=== PATIENT | female | born 1935 | race Caucasian/White ===

== ENCOUNTER → 2016-06-28 | Outpatient (CLI) | payer MEDICARE, BC ==
[~2016-06-28] MED LIST: ALDACTONE DPS25 MG PO; ALDACTONE25 MG PO; ASA325 MG PO; CALCITRIOL0.25 MCG PO; COUMADIN5 MG PO; COUMADIN7.5 MG PO; DELTASONE DPS10 MG PO; DELTASONE DPS5 MG PO; DULCOLAX-DPS10 MG PR; DUONEB DPS3 ML IH; FISH OIL 1,0001 EACH PO; ICAPS TABLET1 EACH PO; LASIX DPS40 MG PO; LASIX DPS80 MG PO; LEVAQUIN DPS250 MG PO; LEVAQUIN DPS500 MG PO; MIRALAX PACKET17 GM PO; NORVASC5 MG PO; OMEGA-3 DPS1000 MG PO; PEPCID DPS20 MG PO; PRAVACHOL40 MG PO; PRESERVISION A1 EACH PO; PRILOSEC DPS20 MG PO; PROVENTIL HFA6.7 GM IH; PROVENTIL2.5 MG/3 M PO; ROCALTROL DP0.25 MCG PO; SPIRIVA18 MCG IH; SYMBICORT160 MCG/6 IH; THERA1 EACH PO; THERAPEUTIC MUL1 TAB PO; TYLENOL DPS325 MG PO; [UNRECOGNIZED DRUG - OTHER] PO
== END | disposition home or self-care (01) ==
LOC: RAD.S 10:20
DX: I82.622 Acute embolism and thrombosis of deep veins of left upper extremity (principal)

== ENCOUNTER 2016-07-04 06:28 | Inpatient (IN) | payer MEDICARE, BC ==
[~2016-07-04] VITALS: Ht 162.6 cm; Wt 114.4 kg
--- NOTE | ~2016-07-04 | ECH ---
Transthoracic Echocardiography Report (TTE) Demographics Patient Name ELIANA HILARIO Date of Study 07/06/2016 Patient Number [id number] Visit Number [id number] Date of 1935 Room Number 427 Accession Number [id number] Gender Female Age 81 year(s) Referring Aaron Lion MD Bi Technical Lead Fariba Richardson Physician RDCS Physician Interpreting King Julián Ge MD Welfare Interviewer Physician Supervising Ordering Physician Aaron Lion MD, MD/MLP Nurse Stress Used Car Make Ready Worker Conclusions Summary Technically adequate exam. The estimated left ventricular ejection fraction is 60%. Diastolic assessment reveals Grade I diastolic dysfunction. Mild tricuspid regurgitation by color Doppler. There is mild pulmonary hypertension. The pulmonary pressure (RVSP) is 40 mmHg. Procedure Type of Study TTE procedure:Echo Complete SF. Procedure Date Date: 07/06/2016 Start: 10:23 AM Technical Quality: Adequate visualization Indications:Shortness of breath, Coronary artery disease, Congestive heart failure and Hypertension. Appropriate Use Criteria: 9 Height: 64 inches Weight: 244 pounds BSA: 2.13 m Rhythm: Within normal limits HR: 82 bpm BP: 126/59 mmHg M-Mode/2D Measurements LV Diastolic Dimension: 5.29 cm LV Systolic Dimension: 2.96 cm LV Septum Diastolic: 0.83 cm LV PW Diastolic: 0.82 cm AO Root Dimension: 3.08 cm Cardiac Output: 6.66 l/min LA Dimension: 3.47 cm Cardiac Index: 3.13 l/min*m RV Diastolic Dimension: 3.54 cm LA volume index: 25 ml/m LVOT: 1.95 cm LVOT VTI: 27.22 cm RV Base: 2.6 cm LV Stroke volume: 81.25 ml RV Mid: 1.8 cm LV Stroke volume index: 38.15 ml/m TAPSE: 2.8 cm TDI-S': 15 cm/s Doppler Measurements AV Peak Velocity: 1.9 m/s MV Peak E-Wave: 0.92 m/s AV Peak Gradient: 14.44 mmHg MV Peak A-Wave: 0.99 m/s AV Mean Gradient: 8.72 mmHg MV E/A Ratio: 0.93 LVOT Peak Velocity: 1.22 m/s MV P1/2t: 66.1 msec AV Area (Continuity):2.04 cm MV Deceleration Time: 219.6 msec TR Velocity:2.95 m/s MV Area (PHT): 3.33 cm TR Gradient:34.81 mmHg PV Peak Velocity: 0.93 m/s Estimated RAP:5 mmHg PV Peak Gradient: 3.45 mmHg Estimated RVSP: 40 mmHg Estimated PASP: 39.81 mmHg E' Septal Velocity: 0.13 m/s A' Septal Velocity: 0.1 m/s E' Lateral Velocity: 0.06 m/s A' Lateral Velocity: 0.1 m/s RA Area: 15.69 cm Findings Left Ventricle Normal left ventricle size and function. Diastolic assessment reveals Grade I diastolic dysfunction. Right Ventricle Normal right ventricle structure and function. Left Atrium Normal left atrial size. Right Atrium Normal right atrial size. Mitral Valve Normal mitral valve structure and function. Trivial mitral regurgitation by color Doppler. Aortic Valve The aortic valve is mildly sclerotic. Tricuspid Valve Normal tricuspid valve structure and function. Mild tricuspid regurgitation by color Doppler. There is mild pulmonary hypertension. The pulmonary pressure (RVSP) is 40 mmHg. Pulmonic Valve The pulmonic valve is not well visualized. Pericardial Effusion No evidence of pericardial effusion. Miscellaneous Visualized portions of the aortic root and ascending aorta appear normal in size. Pleural Effusion No evidence of pleural effusion. Signature
--- NOTE | ~2016-07-04 | CST ---
Cardiac Perfusion Imaging Demographics Patient Name YANELIS Nixon Gender Female Patient Number [id number] Race Visit Number [id number] Ethnicity Corporate ID Room Number 427 Accession Number [id number] Height 64 inches Date of 1935 Weight 244 pounds Age 81 year(s) BSA 2.13 m Referring Physician King Julián Ge MD BMI 41.88 kg/m Renetta Leonardo MD Interpreting Physician [facility] Date of study 07/08/2016 Princess Han Supervising MD/MLP Princess SALGADO Technologist Jed Han Ordering Physician King Julián Ge MD Stress Jeannine Alina equipment technician Stress ECG Reading [facility] Nurse Cheryl Covington Physician Princess Covington The procedure was explained in detail to the patient. Risks, complications and alternative treatments were reviewed. Written consent was obtained. Medications Reviewed with Patient prior to Procedure. Procedure Procedure Type: Nuclear Stress Test:Pharmacological, Cardiac Study Procedure Start time: 07/08/2016 07:30 Indications: Dyspnea, Chronic Diastolic Heart Failure, Tobacco use-prior, Hyperlipidemia, Hypertension and Family history of coronary artery disease. Risk Factors The patient risk factors include:obesity, former tobacco use, treated and uncontrolled hypercholesterolemia, treated and uncontrolled hypertension, family history of premature CAD, chronic lung disease, dyslipidemia and prior heart failure . Conclusions Summary Perfusion Images: The overall quality of the study is good. Left ventricular cavity is noted to be normal on the stress and rest studies. There is no evidence of abnormal lung activity. The right ventricle is not visualized and cannot be assessed. Stress SPECT images demonstrate homogenous tracer distribution throughout the myocardium. Rest SPECT images demonstrate homogenous tracer distribution throughout the myocardium. Gated SPECT imaging reveals normal myocardial thickening and wall motion. The left ventricular ejection fraction was calculated to be 69%. Impression 1. No ECG evidence of ischemia with Lexiscan infusion. 2. Myocardial perfusion imaging is normal. 3. Overall left ventricular systolic function was normal without regional wall motion abnormalities. 4. There are no previous studies for comparison. Stress Protocols Resting ECG Normal sinus rhythm. Within normal limits. Resting HR:69 bpm Resting BP:102/60 mmHg Stress Protocol:Pharmacologic Predicted HR: 138 bpm Test duration: 06:00 min Reason for termination:Infusion complete ECG Findings Normal sinus rhythm. No ECG changes suggestive of ischemia. Arrhythmias No rhythm abnormality. Symptoms Shortness of breath. Complications Procedure complication: None. Stress Interpretation Negative pharmacologic stress ECG for ischemia. Imaging Results Summed scores - Summed stress score: 0 - Summed rest score: 0 - Summed difference score: 0 Stress ejection Ejection fraction:68 % EDV :85 ml ESV :27 ml Stroke volume :58 ml LV mass :101 gr Imaging Protocols Rest Stress Isotope:Tc99m Myoview IV Isotope: Tc99m Myoview IV Isotope dose:10.5 mCi Isotope dose:30.6 mCi Date:07/08/2016 06:30 Date:07/08/2016 07:30 Technique: SPECT Technique: Gated Supine SPECT Supine IV remains in place after procedure. Scan Time:30 minutes post injection Scan Time:45-60 minutes post injection Procedure Medications - Regadenoson (Lexiscan) 0.4 mg IV over 10-15 sec. I.V. 0.4 mg. Medications administered per verbal order and read back to physician prior to administration. Medical History Admission Data Admission date: 07/06/2016 Admission Time: 14:45 Hospital Status: Inpatient. Signatures
[~2016-07-04 06:28] MED LIST changes: -ALDACTONE25 MG PO; -DELTASONE DPS10 MG PO; -DULCOLAX-DPS10 MG PR; -DUONEB DPS3 ML IH; -LASIX DPS80 MG PO; -LEVAQUIN DPS250 MG PO; -MIRALAX PACKET17 GM PO; -OMEGA-3 DPS1000 MG PO; -PEPCID DPS20 MG PO; -PRESERVISION A1 EACH PO; -PROVENTIL2.5 MG/3 M PO; -ROCALTROL DP0.25 MCG PO; -THERA1 EACH PO
--- NOTE | 2016-07-04 19:08 | ER ---
ADMIT: 07/04/2016 RM/LOC: 427 [facility] MR#: [id number] [address] [address] ELIANA HILARIO [address] [place] [address] Emergency Room Report SEX: F AGE: 81 : 1935 DATE: 07/04/2016 HISTORY OF PRESENT ILLNESS: The patient is an 81-year-old female with a past medical history of CHF, hypertension, COPD, and asthma, came to the ER with chief complaint of increased shortness of breath today. The patient denies any fever at home. The patient denies any chest pain too. PHYSICAL EXAMINATION: VITAL SIGNS: The patient had moderate respiratory distress, O2 saturation was in low 90s in room air, the patient was slightly tachypneic, the patient was not febrile, the patient received breathing treatment. LUNGS: Bilateral wheezing without any crackles. HEART: Normal S1-S2 without any murmurs. ABDOMEN: Soft. EXTREMITIES: No tenderness in lower extremities. IMAGING DATA: Chest x-ray did not show any infiltration. EKG did not show any ST or T changes or Q-waves or arrhythmia. Cardiac enzymes are negative. D-dimer is negative. The patient received another dose of DuoNeb nebulizer, the patient received Solu-Medrol IV in the ER. The patient was signed out to the next shift to follow up on her condition and accordingly for shortness of breath, COPD exacerbation/asthma exacerbation. BNP was also noncontributory. Drew Miller MD/ ashwini JOB #: [id number] CC: Miguelito Jackson MD, Attending Physician Miguelito Jackson MD, Family Physician
[2016-07-08] MEDS ORDERED: ROCALTROL DP0.25 MCG PO (20:29)
[2016-07-08] MEDS ORDERED: NORVASC5 MG PO (20:30)
[2016-07-08] MEDS ORDERED: MIRALAX PACKET17 GM PO (20:30)
[2016-07-08] MEDS ORDERED: PRAVACHOL40 MG PO (20:30)
[2016-07-08] MEDS ORDERED: LEVAQUIN DPS250 MG PO (20:30)
[2016-07-08] MEDS ORDERED: PEPCID DPS20 MG PO (20:30)
[2016-07-08] MEDS ORDERED: PROVENTIL HFA6.7 GM IH (20:31)
[2016-07-08] MEDS ORDERED: ALDACTONE25 MG PO (20:31)
[2016-07-08] MEDS ORDERED: SPIRIVA18 MCG IH (20:31)
[2016-07-08] MEDS ORDERED: SYMBICORT160 MCG/6 IH (20:31)
[2016-07-08] MEDS ORDERED: PRESERVISION A1 EACH PO (20:32)
[2016-07-08] MEDS ORDERED: OMEGA-3 DPS1000 MG PO (20:32)
[2016-07-08] MEDS ORDERED: ASA325 MG PO (20:32)
[2016-07-08] MEDS ORDERED: LASIX DPS40 MG PO (20:32)
[2016-07-08] MEDS ORDERED: THERA1 EACH PO (20:32)
[2016-07-08] MEDS ORDERED: COUMADIN5 MG PO (20:33)
[2016-07-08] MEDS ORDERED: LASIX DPS80 MG PO (20:33)
[2016-07-08] MEDS ORDERED: DUONEB DPS3 ML IH (20:34)
[2016-07-08] MEDS ORDERED: PROVENTIL2.5 MG/3 M PO (20:34)
[2016-07-08] MEDS ORDERED: DULCOLAX-DPS10 MG PR (20:34)
[2016-07-08] MEDS ORDERED: DELTASONE DPS10 MG PO (20:36)
--- NOTE | 2016-07-15 10:40 | HP ---
ADMIT: 07/04/2016 RM/LOC: 427 [facility] MR#: [id number] 26[address] [facility] [address] [place], [place] [address] VIOLETA HILARIOLEY Tiffani [address] [place] [address] History and Physical SEX: F AGE: 81 : 1935 DATE OF SERVICE: CHIEF COMPLAINT: Shortness of breath. HISTORY OF PRESENT ILLNESS: The patient is a pleasant 81-year-old female with recently saw myself in clinic here with three days of fever, shortness of breath, and URI symptoms. Denies any cardiac symptoms. No chest pain. No left arm pain. No jaw pain. Denies any other real concerns or complaints at this time. PAST MEDICAL HISTORY: COPD, asthma, coronary artery disease, CKD, diastolic heart failure, hyperlipidemia, obesity, sleep apnea, osteoporosis, spinal stenosis, breast cancer, and per records of aortic stenosis. PAST SURGICAL HISTORY: Hysterectomy; breast lumpectomy; foot, sinus, hand, elbow, and shoulder surgery; neck fusion. ALLERGIES: PENICILLIN, CEPHALOSPORINS, SULFA, THEOPHYLLINE, ISOSORBIDE- OXYCODONE, CELEBREX, AND LEXAPRO. MEDICATIONS: 1. Calcitriol 0.25 mcg daily. 2. Pravastatin 40 at bedtime. 3. MiraLAX as needed. 4. Omeprazole 20 b.i.d. 5. Amlodipine 5 daily. 6. Spironolactone 25 b.i.d. 7. Symbicort daily. 8. Spiriva daily. 9. Ventolin q.4 hours p.r.n. 10.Fish oil 2000 b.i.d. 11.PreserVision b.i.d. 12.Multivitamin. 13.Aspirin 325 daily. 14.Lasix 40 every other day. 15.Lasix 80 every other day. 16.Warfarin 5 on Monday, Monday, Monday, and Monday and 7.5 on Monday, , and Monday. FAMILY HISTORY: Coronary artery disease, hypertension, diabetes, uterine cancer, lymphoma, bladder cancer, and colon cancer. REVIEW OF SYSTEMS: Positive for fevers and shortness of breath. She denies chills, chest pain, headaches, nausea, vomiting, numbness, tingling, vision changes, or melena. SOCIAL HISTORY: Prior tobacco abuse. PHYSICAL EXAMINATION: VITAL SIGNS: Temp 98.7, pulse 95, blood ADMIT: 07/04/2016 RM/LOC: 427 [facility] MR#: [id number] [address] [address] [place] [address] History and Physical SEX: F AGE: 81 : 1935 pressure 140/70, and O2 is 94%. GENERAL: She is alert, awake, oriented, in no acute distress. HEENT: Normocephalic, atraumatic. Pupils are round and reactive to light. HEART: Regular rate and rhythm. LUNGS: Diminished throughout. ABDOMEN: Soft, nontender, and nondistended. EXTREMITIES: No clubbing, cyanosis, or edema. NEURO: Cranial nerves II through XII are grossly intact. No focal motor or sensory deficits. LABORATORY DATA: Cardiac enzymes are negative. Sodium 141, potassium 3, chloride 105, CO2 of 26, BUN 21, glucose 108, creatinine is 1.3, and calcium is 8.3. Bilirubin is 0.3, total protein 7.5, albumin is 2.7, alkaline phosphatase 73, AST 15, and ALT 16. Chest x-ray shows emphysema. INR is 1.83. White count 13.8, hemoglobin 11.4, and platelets 242. ASSESSMENT: 1. Chronic obstructive pulmonary disease exacerbation. 2. Diastolic heart failure. 3. Chronic kidney disease. 4. Obesity. 5. Sleep apnea. 6. Osteoporosis. PLAN: Plan will be for IV antibiotics, steroids, and nebs. Anticipate discharge relatively in the near future. Miguelito Jackson MD/ ashwini JOB #: [id number] CC: Miguelito Jackson MD, Attending Physician Miguelito Jackson MD, Family Physician
--- NOTE | 2016-07-15 15:59 | CO ---
ADMIT: 07/04/2016 RM/LOC: 427 [facility] MR#: [id number] [address] [address] ELIANA HILARIO [address] [place] [address] Consultation SEX: F AGE: 81 : 1935 DATE OF CONSULTATION: 07/06/2016 ATTENDING PHYSICIAN: Miguelito Jackson MD CONSULTING PHYSICIAN: Beatriz Peoples MD CHIEF COMPLAINT: Acute kidney injury and chronic kidney disease stage 3. HISTORY OF PRESENT ILLNESS: The patient is an 81-year-old female, who is well known to me. She has a history of CKD stage 3 with a baseline creatinine of around 1.4. She was admitted to the hospital 2 days ago with a chief complaint of shortness of breath. She has a history of COPD and notes that towards the end of last week, she had a fever. Then she went on to have a cough. She presented for an evaluation and was admitted with COPD exacerbation. She is being treated with antibiotics as well as appropriate respiratory therapy. Her admission creatinine was at her baseline of 1.3. It was elevated to 1.6 yesterday and 2.1 today. This in the setting of her blood pressure dropping to the low 110s to 120s and diuretic use including Lasix and spironolactone. She has continued to have poor appetite throughout this course of illness over the last one week or so. She denies any urinary complaints. Denies any lower extremity edema. She denies any orthopnea or PND. Denies any abdominal complaints. REVIEW OF SYSTEMS: A complete review of systems is negative in detail except as mentioned in history of present illness above. PAST MEDICAL HISTORY: 1. Chronic kidney disease stage 3 with a baseline creatinine of 1.4. 2. Hypertension. 3. Renal osteodystrophy. 4. COPD. 5. Asthma. 6. Coronary artery disease. 7. Diastolic heart failure. 8. Obesity. 9. Obstructive sleep apnea, on CPAP. 10.Osteoporosis. 11.Spinal stenosis. 12.Breast cancer status post lumpectomy. 13.Hysterectomy. ALLERGIES: SULFA, PENICILLIN, VIOXX, CELEBREX, PERCOCET, KEFLEX. MEDICATIONS: Reviewed in the chart. FAMILY HISTORY: Diabetes and heart disease run in her family. SOCIAL HISTORY: She is a former smoker. No ongoing tobacco, alcohol, or recreational drug use. ADMIT: 07/04/2016 RM/LOC: 427 [facility] MR#: [id number] [address] [address] ELIANA HILARIO [facility] [place] [address] Consultation SEX: F AGE: 81 : 1935 PHYSICAL EXAMINATION: VITAL SIGNS: Temperature 97.2 Fahrenheit, pulse 80, blood pressure 126/59, and saturating 100% on 2 L nasal cannula. Urine output over the last 24 hours has been 550 mL. GENERAL: She is comfortable in her recliner. HEENT: Head is nontraumatic and normocephalic. Pale conjunctivae. Dry mucosa. NECK: Supple without any JVD. CHEST: Clear to auscultation. Decreased breath sounds at the bases. CVS: Regular rhythm. S1, S2 heard. No rubs, murmurs, or gallops. ABDOMEN: Soft, obese. EXTREMITIES: No edema. SKIN: No rash or nodules. NEUROLOGIC: Alert, awake, oriented x3 is able to move all her extremities. PSYCHIATRIC: Affect and memory within normal limits. MUSCULOSKELETAL: Major joints within normal limits. Range of motion within normal limits. LABORATORY DATA: Reviewed. BMP with sodium 135, potassium 4.2, creatinine 2.1. It was 1.6 yesterday. Her CO2 was 25. Her hemoglobin is 9.8. Chest x-ray from this morning showed cardiomegaly and emphysema. No obvious infiltrate in her lungs. ASSESSMENT AND PLAN: 1. Acute kidney injury on chronic kidney disease stage 3 - baseline creatinine is around 1.4. Acute kidney injury is likely prerenal in etiology in the setting of decreased oral intake and diuretic use. I will check urine studies to evaluate this further. I agree with holding her diuretics for the time being and gentle IV fluids. I recommend avoiding nephrotoxins such as NSAIDs, IV contrast, and Fleets enemas. Monitor kidney function closely moving forward. 2. Hypertension - blood pressure is currently acceptable. She appears euvolemic on exam. 3. Renal osteodystrophy - continue calcitriol 0.25 mcg a day. Thank you for this consultation and allowing me the opportunity to participate in this patient's care. Please do not hesitate to contact with any questions. Beatriz Peoples MD/ ashwini JOB #: [id number] CC: Miguelito Jackson MD, Attending Physician Miguelito Jackson MD, Family Physician
--- NOTE | 2016-08-10 14:02 | CO ---
ADMIT: 07/06/2016 RM/LOC: 427 [facility] MR#: [id number] [address] [address] MARISA HILARIO [address] [place] [address] Consultation SEX: F AGE: 81 : 1935 DATE OF CONSULTATION: 07/07/2016 ATTENDING PHYSICIAN: Miguelito Jackson MD CONSULTING PHYSICIAN: Julián Espinoza MD REASON FOR CONSULT: Diastolic heart failure. HISTORY OF PRESENT ILLNESS: Marisa is a pleasant 81-year-old female, who was admitted on 07/04/2016 with increased shortness of breath and COPD exacerbation. She is known to our office as Dr. Oscar iglesias for her cardiology needs. She states that she was admitted for increasing shortness of breath over her baseline chronic level of shortness of breath. She was treated with antibiotics and steroids for COPD exacerbation; however, she continues to feel that she has an increased level of shortness of breath. She has known diastolic heart failure and she as well as her family were concerned that there could be some cardiac etiology to these symptoms. She denies having any symptoms of chest pain, palpitations or syncope. CARDIAC HISTORY AND RISK FACTORS: Her cardiac history is significant for heart failure with preserved ejection fraction. She has had an ejection fraction of 50% most recently in 2013. She does not have any known coronary artery disease. In 2006 she underwent heart catheterization with normal results. In 2011, she underwent stress test with normal results. In 2014, she did have a left brachial DVT for which she has continued on Coumadin therapy since. Her heart failure has been managed with oral Lasix and spironolactone. She was also on Norvasc 5 mg empirically. Marisa also states that in the past she has suffered 2 mini strokes but is unable to provide details as to when they occurred or what the precipitating factors were. Her cardiac risk factors include significant history of tobacco abuse, smoking one pack per day for 35 years. She states that she quit about 20 years ago. She admits to having high cholesterol but denies any history of hypertension or diabetes. She does state that her mother had congestive heart failure. PAST MEDICAL HISTORY: This is obtained from available records and includes history of asthma, COPD, chronic kidney disease, depression, left breast cancer for which she underwent surgery and radiation therapy in 2007, osteoarthritis, acid reflux, hiatal hernia, macular degeneration, monoclonal gammopathy, obesity, obstructive sleep apnea, spinal stenosis. PAST SURGERY HISTORY: Prior surgeries include left breast lumpectomy, left shoulder surgery, hysterectomy, cystocele repair, foot surgery, trigger thumb surgery, and sinus surgery. ALLERGIES: SHE IS ALLERGIC TO SULFA, PENICILLIN, VIOXX, CELEBREX, PERCOCET, KEFLEX, THEOPHYLLINE, ISOSORBIDE, OXYCODONE, INSULIN, AND THEOPHYLLINE CITALOPRAM. ADMIT: 07/06/2016 RM/LOC: 427 [facility] MR#: [id number] [address] [address] [place] [address] Consultation SEX: F AGE: 81 : 1935 CURRENT MEDICATIONS: Include: 1. Aspirin 325 mg daily. 2. Coumadin as directed. 3. Levaquin 250 mg daily. 4. Norvasc 5 mg daily. 5. [place]-3. 6. Pepcid. 7. Rocaltrol. 8. Multivitamin. 9. Dulera. 10.DuoNeb. 11.Spiriva. 12.Solu-Medrol. Her additional home cardiac medications included: 1. Pravastatin 40 mg daily. 2. Spironolactone 25 mg twice daily. 3. Furosemide 40 mg every other day, alternating with 80 mg. FAMILY HISTORY: Her family history is significant for congestive heart failure in her mother. There is a history of heart disease in her brother and diabetes in her daughter. Her mother suffered from stroke. There is a family history of cancer in her brother and daughter. SOCIAL HISTORY: Marisa states she drinks at least 2 cups of caffeinated beverages daily. She denies use of alcohol or other nonprescription drugs. She states that she does go to cardiac rehab 2 days per week. She is retired. She used to work in Physical Therapy at the hospital. She is and lives by herself in her own home. REVIEW OF SYSTEMS: GENERAL: Denies fatigue, fever, chills, sweats, rash, or weight loss. EYES: Denies double vision, blurred vision, cataracts, or glaucoma. ENT: Denies hearing loss or problems with nose, mouth or throat. PULMONARY: RESPIRATORY: Positive for shortness of breath, asthma, COPD, and negative for others. GASTROINTESTINAL: Denies heartburn or difficulty swallowing. No change in bowel habits. Denies dark or bloody stools. No history of ulcers, hiatal hernia, or gallbladder or liver disease. GENITOURINARY: Denies dysuria, hematuria, nocturia, urinary tract infection, or kidney stones. Denies history of renal insufficiency or failure. MUSCULOSKELETAL: Denies history of arthritis or gout. Positive for chronic back and leg pain.. ENDOCRINE: Denies history of thyroid dysfunction or diabetes. HEMATOLOGIC: Positive for history of breast cancer in 2007. Denies history of anemia or easy bruising. NEUROLOGIC: Denies chronic headaches, dizziness, syncope, stroke, seizures or numbness or tingling. ADMIT: 07/06/2016 RM/LOC: 427 [facility] MR#: [id number] 2620 [facility] [address] [place] [id number] MARISA HILARIO [facility] [address] [place], [place] [address] Consultation SEX: F AGE: 81 : 1935 PSYCHIATRIC: Denies history of mental illness. PSYCHIATRIC: Positive for depression. PHYSICAL EXAMINATION: VITAL SIGNS: Blood pressure 134/56, pulse 71, respiratory rate 20, temp 96.9, O2 saturation 99%. GENERAL: Alert and oriented x3. SKIN: Payne, warm and dry. EYES: Sclerae clear. No xanthelasmas. ENT: Oral mucosa is pink and moist. No jugular venous distention or carotid bruits. CHEST: Decreased breath sounds. HEART: Regular rate and rhythm. Normal S1, S2. No murmurs, rubs or gallops. ABDOMEN: Soft and nontender. MUSCULOSKELETAL: Gait is normal. EXTREMITIES: Peripheral pulses palpable. No clubbing, cyanosis or edema. PSYCHIATRIC: Alert and oriented. Mood and affect are appropriate. DIAGNOSTIC STUDIES: WBC 8.8, hemoglobin 9.9, platelets 245. Creatinine 1.6 today, magnesium 2.9. Her cardiac enzymes and BNP were negative. Repeat echocardiogram revealed an ejection fraction of 60%, grade 1 diastolic dysfunction, mild tricuspid regurgitation, and mild pulmonary hypertension. Chest x-ray yesterday revealed cardiomegaly. CT of the chest noncontrast performed this morning reveals significant coronary calcifications. ASSESSMENT: 1. Shortness of breath. 2. Coronary calcifications. 3. Chronic obstructive pulmonary disease. 4. Chronic kidney disease. PLAN: Her BNP result is within normal limits, which makes it less likely that her increased shortness of breath is due to congestive heart failure. She currently has no edema or response to diuretics given in the preceding days. Her CT chest performed this morning shows significant coronary calcification. We will proceed with checking a stress test to make sure that she is not having symptoms from ischemia. If her stress test is normal, we could potentially evaluate for pulmonary emboli. She has been on anticoagulation with Coumadin, however since 2014. We will proceed with stress test in the morning and continue to monitor and review those results. SENAIT Parker Student / Julián Espinoza MD / modl JOB #: [id number] CC: Miguelito Jackson MD, Attending Physician Miguelito Jackson MD, Family Physician
--- NOTE | 2016-08-25 20:17 | DS ---
ADMIT: 07/06/2016 RM/LOC: [address] [facility] MR#: [id number] [place], [place] [id number] ELIANA HILARIO [address] [place] [address] General Discharge Summary SEX: F AGE: 81 : 1935 ADMISSION DATE: 07/06/2016 DISCHARGE DATE: 07/08/2016 DISCHARGE DIAGNOSES: Include: 1. Upper respiratory infection. 2. Chronic obstructive pulmonary disease exacerbation. 3. Heart failure with preserved ejection fraction. 4. Acute kidney injury on chronic kidney disease. 5. Obesity. 6. Sleep apnea. 7. Osteoporosis. 8. Multiple medical problems. 9. Mild pulmonary hypertension. CONSULTANTS: Nephrology and Cardiology. HISTORY OF PRESENT ILLNESS: Please refer to admission H and P dated 07/04/2016. HOSPITAL COURSE: The patient was admitted, started on IV antibiotics, IV steroids and nebulizers. Home medicines were continued other than her Lasix. Cardiac enzymes were trended. She was put on Levaquin. Steroids were weaned. Nephrology was consulted. She was given IV fluid resuscitation and I requested Cardiology evaluate the patient. Steroids continued to be weaned. Cardiology evaluated the patient for nuclear stress test. She had a normal myocardial perfusion, but still short of breath, thus CTA was performed, which was negative for PE. The patient was discharged with close followup on 07/08/2016. MEDICATIONS: Please see discharge MAR. PROCEDURES: Nuclear stress test. LABS: On 07/07/2016; white count 8.8, hemoglobin 9.9, platelets were 245. On 07/08/2016; creatinine 1.3. Urine culture showed no growth. Respiratory viral panel, no clear probe detected. Radiology on 07/07/2016 chest without showed discoid atelectasis in the right middle lobe, coronary artery disease. ADMIT: 07/06/2016 RM/LOC: [address] [facility] MR#: [id number] [facility] [address] [place], [place] [address] ELIANA HILARIO [address] [place] [address] General Discharge Summary SEX: F AGE: 81 : 1935 CTA on 07/08/2016 showed atelectasis in the right middle lobe and left lower lobe. No pulmonary emboli. Chest x-ray showed emphysema, congestive heart failure. On 07/06, chest x-ray shows congestive failure and probable COPD. Echo on 07/06/2016 shows an EF of 60%. Diastolic grade 1 dysfunction, mild tricuspid regurg, mild pulmonary hypertension. On 07/08/2016, stress test shows no ECG evidence of ischemia. Myocardial perfusion imaging is normal. Left ventricular systolic function normal without regional wall motion abnormalities. No previous studies. Follow up with Cardiology in one month and Nephrology as scheduled. CBC, CMP, and INR on 07/11, chest x-ray. Follow up with PCP in 3-4 days. Miguelito Jackson MD/ ashwini JOB #: [id number] CC: Miguelito Jackson MD, Attending Physician Miguelito Jackson MD, Family Physician . [facility]
== END 2016-07-08 15:00 | disposition home health service (06) | DRG 191 ==
LOC: ER 06:28 → 4PCU 09:45
PROVIDERS: ADMIT Family Medicine
DX: J44.1 Chronic obstructive pulmonary disease with (acute) exacerbation (principal); N17.9 Acute kidney failure, unspecified; I27.2 Other secondary pulmonary hypertension; I50.32 Chronic diastolic (congestive) heart failure; N25.0 Renal osteodystrophy; I13.0 Hypertensive heart and chronic kidney disease with heart failure and stage 1 through stage 4 chronic kidney disease, or unspecified chronic kidney disease; Z68.41 Body mass index [BMI] 40.0-44.9, adult; J06.9 Acute upper respiratory infection, unspecified; I35.0 Nonrheumatic aortic (valve) stenosis; I25.10 Atherosclerotic heart disease of native coronary artery without angina pectoris; E78.5 Hyperlipidemia, unspecified; E66.9 Obesity, unspecified; N18.3 Chronic kidney disease, stage 3 (moderate); G47.33 Obstructive sleep apnea (adult) (pediatric); M81.0 Age-related osteoporosis without current pathological fracture; M48.00 Spinal stenosis, site unspecified; Z85.3 Personal history of malignant neoplasm of breast; Z79.82 Long term (current) use of aspirin; Z79.01 Long term (current) use of anticoagulants; Z82.49 Family history of ischemic heart disease and other diseases of the circulatory system; Z87.891 Personal history of nicotine dependence; Z86.718 Personal history of other venous thrombosis and embolism; Z86.73 Personal history of transient ischemic attack (TIA), and cerebral infarction without residual deficits; Z66 Do not resuscitate

== ENCOUNTER → 2016-07-27 | Outpatient (CLI) | payer MEDICARE, BC ==
[~2016-07-27] MED LIST changes: +ALDACTONE25 MG PO; +DELTASONE DPS10 MG PO; +DULCOLAX-DPS10 MG PR; +DUONEB DPS3 ML IH; +LASIX DPS80 MG PO; +LEVAQUIN DPS250 MG PO; +MIRALAX PACKET17 GM PO; +OMEGA-3 DPS1000 MG PO; +PEPCID DPS20 MG PO; +PRESERVISION A1 EACH PO; +PROVENTIL2.5 MG/3 M PO; +ROCALTROL DP0.25 MCG PO; +THERA1 EACH PO
== END | disposition home or self-care (01) ==
LOC: RESC 08:55
DX: J44.9 Chronic obstructive pulmonary disease, unspecified (principal); R06.00 Dyspnea, unspecified; R94.2 Abnormal results of pulmonary function studies